=== PATIENT | female | born 1960 | race Caucasian/White ===

== ENCOUNTER 2019-09-26 14:02 | Emergency (ER) | payer SELFPAY ==
--- NOTE | 2019-09-26 14:18 | CT_ITS ---
WS: [id number] CT HEAD NONCONTRAST HISTORY: MARSH/AMS TECHNIQUE: Contiguous axial imaging performed through the brain in 2.5 mm imaging. Bone and soft tiss ue windows. Sagittal and coronal reformats reviewed. All CT scans at [facility] use at ast one of these dose optimization techniques: automated exposure control; mA and/or kV adjustment pe r patient size (includes targeted exams where dose is matched to clinical indication); or iterative r econstruction. DLP: 837.88 mGy.cm COMPARISON: 10/26/2017 No acute intracranial hemorrhage, midline shift or mass effect. No atrophy or prior infarcts or herniation. Ventricles: Normal size with no hydrocephalus. No inferior displacement of cerebellar tonsils. Paranasal sinuses: As visualized are clear. Mastoid air cells: Well pneumatized. Calvarium and scalp: Skull is intact with no soft tissue edema or swelling. CT/CT head wo con* [id number] IMPRESSION: Negative CT head. No interval change since 10/26/2017.
--- NOTE | 2019-09-26 14:18 | XR_ITS ---
WS: [id number] PORTABLE CHEST HISTORY: cough COMPARISON: None available. Increased soft tissue fullness at the RIGHT hilum. LEFT lung is clear. No pleural effusion or pneumot horax. Cardiac size: Normal. Mediastinum/Aorta: Mild atherosclerosis aorta. Prior RIGHT rotator cuff repair. XR/XR chest 1V portable [id number] IMPRESSION: 1. Increased soft tissue at the RIGHT hilum. Recommend follow-up chest CT with IV contrast. Adenopathy, atelectasis, pneumonia and neoplasm within the differ ential.
--- NOTE | 2019-09-26 14:31 | ED_ITS ---
HPI - General Adult General: Chief complaint: Headache Stated complaint: weakness/fever/headache Time Seen by Provider: 09/26/19 14:05 History of Present Illness: HPI narrative: Marry is a 59-year-old female who comes in complaining of fever, generalized malaise and headache. Her fevers got as high as 101.6 at home. Her symptoms started 4 days ago. Symptoms have been intermittent. She denies any neck pain or stiffness, nausea or vomiting, skin rash, cough, dysuria or shortness of breath. She denies abdominal pain, urinary frequency or urgency. Associated symptoms: Reports headache(s) and malaise; Deny chest pain, confusion, diaphoresis, dyspnea, nausea, rash, palpitations, syncope or vomiting Review of Systems General: Reports: other (negative unless marked) Const: Reports: fever, chills, body aches, fatigue and malaise; Denies: diaphoresis Eyes: Denies: change in vision or blurry vision ENMT: Denies: throat pain, painful swallowing, hoarseness, ear pain, ear discharge, Change in hearing or nasal discharge Card: Denies: chest pain, palpitations, irregular heart rhythm, syncope, pre- syncope, shortness of breath on exertion or shortness of breath when lying down Resp: Denies: shortness of breath, productive cough, non-productive cough, wheezing, coughing up blood or chest congestion GI: Denies: abdominal pain, nausea, vomiting, vomiting blood, coffee grounds in vomit, diarrhea, constipation, cramping, blood in stool or black tarry stool : Denies: flank pain, painful urination, urinary frequency, urinary urgency, decreased urine ouput, urinary incontinence or blood in urine Musc: Denies: neck pain, back pain, extremity pain, extremity swelling, joint pain, joint swelling, joint warmth or joint stiffness Skin/Breast: Denies: rash, skin tenderness or yellow skin Neuro: Reports: headache; Denies: numbness in extremities, weakness in extremities, changes in sensation, lack of coordination, difficulty walking, dizziness, vertigo or confusion Endo: Denies: excessive thirst, tired all the time, cold intolerance, excessive sweating, flushing or hot flashes Efrem/Lymph: Denies: easy bruising, easy bleeding, petechiae or enlarged lymph nodes All/Imm: Denies: hives, throat swelling, tongue swelling, facial swelling or acute wheezing PFSH ED PFSH: Medical History Depression Surgical History Hx of inguinal hernia surgery Previous section Social History Smoking and tobacco status: never smoked Physical Exam Const: COMMON NORMALS: no apparent distress, oriented x3, no limitations, healthy appearing and well nourished EXAM LIMITATIONS: no altered mental status GENERAL APPEARANCE: cooperative, well kempt and well developed ORIENTATION/CONSCIOUSNESS: Yes awake HENMT: COMMON NORMALS: normocephalic, head/scalp atraumatic, hearing grossly normal bilaterally, external ears normal, EAC's normal, external nose normal and moist oral mucous membranes HEAD & SCALP: normal to inspection, normocephalic and atraumatic FACE & SINUS: normal facial exam and face symmetric NOSE: external nose normal and nares normal EXTERNAL EAR: Yes external ears normal EXTERNAL AUDITORY CANAL: EAC's normal MOUTH: oral and palatal mucosa normal and tongue normal Eye: COMMON NORMALS: PERRL, EOMs intact bilaterally, conjunctivae normal and no scleral icterus GENERAL EYE: normal appearance of both eyes and normal light reflex CONJUNCTIVA: Yes conjunctivae normal SCLERA: sclerae normal CORNEA: Yes corneas normal PUPIL: Yes PERRL DIRECT OPHTHALMOSCOPY: Yes normal light reflex Neck/C-Spine: COMMON NORMALS: full ROM, no lymphadenopathy, supple, no meningeal signs and no JVD GENERAL: Yes normal visual inspection and Yes trachea midline CERVICAL SPINE: Yes cervical ROM normal Chest: COMMONS NORMALS: inspection of chest normal and palpation of chest normal Resp: COMMON NORMALS: normal respiratory effort, no retractions, no use of accessory muscles and clear to auscultation bilaterally EFFORT & INSPECTION: Yes able to speak in complete sentences AUSCULTATION: clear to auscultation bilaterally Cardio: COMMON NORMALS: no JVD, regular rate, regular rhythm, S1 normal heart sound, S2 normal heart sound, no gallops, no clicks, no murmurs and no rub JUGULAR VENOUS DISTENTION: no JVD RATE: regular rate RHYTHM: regular rhythm HEART SOUNDS: S1 normal and S2 normal GI: COMMON NORMALS: soft to palpation, non-tender, no hepatosplenomegaly and no masses INSPECTION: Yes normal to inspection PALPATION: Yes soft and Yes no hepatosplenomegaly : COMMON NORMALS: Yes no CVA tenderness BLADDER/KIDNEY EXAM: Yes no CVA tenderness Back/Pelvis: COMMON NORMALS: no CVA tenderness, thoracic and lumbar spine normal to inspection, no thoracic nor lumbar tenderness and thoraco-lumbar ROM normal Extremity: COMMON NORMALS: normal to inspection, full ROM, normal capillary refill, no joint enlargement, no clubbing, cyanosis or edema and no calf tenderness Neuro: COMMON NORMALS: oriented x3, CN's II-XII intact bilaterally, moves all extremities, no focal motor deficits and no sensory deficits noted MENINGEAL SIGNS: Yes no meningeal signs Psych: COMMON NORMALS: mental status grossly normal, thought process normal, cooperative, affect normal, speech normal and activity/motor behavior normal APPEARANCE: Yes well kempt SPEECH: Yes normal speech THOUGHT PROCESS: normal thought process Skin: COMMON NORMALS: no rashes or lesions noted, skin turgor normal, no jaundice, no petechiae and no mottling GENERAL SKIN EXAM: no rashes or lesions noted and turgor normal Procedures Lumbar Puncture Time Out Performed: Yes Patient Position: left lateral decubitus Skin Prep: Povidone-Iodine 1% Local Anesthetic: lidocaine 1% and with epi Amount of anesthesia used (mL): 3 Spinal Needle Gauge: 20G Interspace Used: L4-L5 Fluid Initially Obtained: clear Complications: none Course ED course: 1423 -risks and benefits reviewed with patient concerning need for lumbar puncture to rule out meningitis and she consents to this. Vital Signs: Vital signs: Vital Signs Temperature 98.6 F 09/26/19 14:34 Pulse Rate 77 09/26/19 17:00 Respiratory Rate 16 09/26/19 17:00 Blood Pressure 104/73 09/26/19 17:00 Pulse Oximetry 96 09/26/19 17:00 MDM - General Adult MDM Narrative: Medical decision making narrative: Marry is a 59-year-old female who comes in complaining of headache. Headache is been for the past 4 days but much worse today. She had a fever 1 day of this illness at 101.6. She is had a couple of tick bites but there is been no rash or other illness that she is aware of. Patient's work-up was negative for meningitis and did reveal a questionable right perihilar infiltrate. She also had mild transaminitis but she refused any imaging with ultrasound. Her hepatitis panel is negative. Patient does not want to have a CT scan today to look for anything further. I reviewed all this with Dr. Everett, on-call for Dr. Martinez and he agrees to let Dr. Martinez know that the patient will follow-up in the office to recheck a chest x- ray and liver enzymes. The patient was informed that this could be an occult malignancy and will need further evaluation and she understands. Lab Data: Attestation: I reviewed the patient's lab results. Labs: Lab Results 09/26/19 09/26/19 09/26/19 Range/Units 14:25 14:25 14:25 WBC 8.6 (4.0-10.0) 10^3/ uL RBC 4.07 L (4.1-5.3) 10^6/u L Hgb 12.9 (11.5-15.3) g/dL Hct 38.5 (37.0-47.0) % MCV 94.6 (81-99) fL MCH 31.7 (28.0-34.0) pg MCHC 33.5 (30.0-36.0) g/dL RDW 12.3 (12.1-15.1) % Plt Count 181 (130-400) 10^3/c mm MPV 10.1 (7.4-10.4) fL Neut % (Auto) 84.6 % Lymph % (Auto) 8.5 % Wharton % (Auto) 6.3 % Eos % (Auto) 0.0 % Baso % (Auto) 0.1 % Neut # (Auto) 7.3 (1.8-7.7) 10^3/u L Lymph # (Auto) 0.7 L (0.8-4.8) 10^3/u L Wharton # (Auto) 0.5 (0.2-0.9) 10^3/u L Eos # (Auto) 0.0 (0.0-0.8) 10^3/u L Baso # (Auto) 0.0 (0.0-0.1) 10^3/u L Nucleated RBC % (a uto) 0 % Nucleated RBCs # 0.0 /100WBC PT (10.5-13.3) SECO NDS INR (0.8-1.2) Sodium 134 L (136-145) mmol/L Potassium 3.9 (3.5-5.1) mmol/L Chloride 97 L (98-107) mmol/L Carbon Dioxide 24 (22-29) mmol/L Anion Gap 16.9 (5-19) BUN 11 (8-23) mg/dL Creatinine 0.5 (0.5-0.9) mg/dL GFR Calculation 125.4 (90-130) mL/min Glucose 124 H (65-115) mg/dL Calculated Osmolal ity 275 L (285-295) mOsm/k g Lactic Acid 0.9 (0.5-2.2) mmol/L Calcium 9.8 (8.5-10.5) mg/dL Magnesium 2.1 (1.7-2.3) mg/dL Total Bilirubin 0.4 (0.15-1.2) mg/dL AST 135 H (0-32) U/L ALT 185 H (0-33) U/L Alkaline Phosphata se 203 H (35-105) IU/L Total Protein 7.0 (6.6-8.7) g/dL Albumin 3.9 (3.5-5.2) g/dL Globulin 3.1 (1.3-4.6) g/dL Urine Color (Yellow) Urine Appearance (CLEAR) Urine pH (5-7) Ur Specific Gravit y (1.005-1.030) Urine Protein (Negative) Urine Glucose (UA) (Normal) Urine Ketones (Negative) Urine Blood (Negative) Urine Nitrate (Negative) Urine Bilirubin (NEGATIVE) Urine Urobilinogen (Negative) mg/dL Ur Leukocyte Leann ase (Negative) Urine RBC (0-2) /hpf Urine WBC (0-5) /hpf Ur Squamous Epith Cells (0-5) Urine Bacteria (NONE) CSF Appearance (CLEAR) CSF Color (COLORLESS) CSF WBC (0-5) /uL CSF RBC (0-0) 10^3/uL CSF Mononuclear # Auto (50-90) 10^3/uL CSF Mononuclear WB Cs % (50-90) % CSF Polynuclear WB Cs # (0-10) 10^3/uL CSF Polynuclear WB Cs % (0-10) % CSF Glucose (40-70) mg/dL CSF Total Protein (15-45) mg/dL Salicylates (3-10) mg/dL Acetaminophen (10-30) ug/mL Hepatitis A IgM Ab (Nonreactive) Hep Bs Antigen (Nonreactive) Hep B Core IgM Ab (Nonreactive) Hepatitis C Antibo dy (Nonreactive) Influenza Type A A g (Negative) Influenza Type B A g (Negative) 09/26/19 09/26/19 09/26/19 Range/Units 14:25 14:25 14:25 WBC (4.0-10.0) 10^3/ uL RBC (4.1-5.3) 10^6/u L Hgb (11.5-15.3) g/dL Hct (37.0-47.0) % MCV (81-99) fL MCH (28.0-34.0) pg MCHC (30.0-36.0) g/dL RDW (12.1-15.1) % Plt Count (130-400) 10^3/c mm MPV (7.4-10.4) fL Neut % (Auto) % Lymph % (Auto) % Wharton % (Auto) % Eos % (Auto) % Baso % (Auto) % Neut # (Auto) (1.8-7.7) 10^3/u L Lymph # (Auto) (0.8-4.8) 10^3/u L Wharton # (Auto) (0.2-0.9) 10^3/u L Eos # (Auto) (0.0-0.8) 10^3/u L Baso # (Auto) (0.0-0.1) 10^3/u L Nucleated RBC % (a uto) % Nucleated RBCs # /100WBC PT 13.20 (10.5-13.3) SECO NDS INR 0.97 (0.8-1.2) Sodium (136-145) mmol/L Potassium (3.5-5.1) mmol/L Chloride (98-107) mmol/L Carbon Dioxide (22-29) mmol/L Anion Gap (5-19) BUN (8-23) mg/dL Creatinine (0.5-0.9) mg/dL GFR Calculation (90-130) mL/min Glucose (65-115) mg/dL Calculated Osmolal ity (285-295) mOsm/k g Lactic Acid (0.5-2.2) mmol/L Calcium (8.5-10.5) mg/dL Magnesium (1.7-2.3) mg/dL Total Bilirubin (0.15-1.2) mg/dL AST (0-32) U/L ALT (0-33) U/L Alkaline Phosphata se (35-105) IU/L Total Protein (6.6-8.7) g/dL Albumin (3.5-5.2) g/dL Globulin (1.3-4.6) g/dL Urine Color (Yellow) Urine Appearance (CLEAR) Urine pH (5-7) Ur Specific Gravit y (1.005-1.030) Urine Protein (Negative) Urine Glucose (UA) (Normal) Urine Ketones (Negative) Urine Blood (Negative) Urine Nitrate (Negative) Urine Bilirubin (NEGATIVE) Urine Urobilinogen (Negative) mg/dL Ur Leukocyte Leann ase (Negative) Urine RBC (0-2) /hpf Urine WBC (0-5) /hpf Ur Squamous Epith Cells (0-5) Urine Bacteria (NONE) CSF Appearance (CLEAR) CSF Color (COLORLESS) CSF WBC (0-5) /uL CSF RBC (0-0) 10^3/uL CSF Mononuclear # Auto (50-90) 10^3/uL CSF Mononuclear WB Cs % (50-90) % CSF Polynuclear WB Cs # (0-10) 10^3/uL CSF Polynuclear WB Cs % (0-10) % CSF Glucose (40-70) mg/dL CSF Total Protein (15-45) mg/dL Salicylates < 0.3 L (3-10) mg/dL Acetaminophen < 5.0 L (10-30) ug/mL Hepatitis A IgM Ab Non-reactive (Nonreactive) Hep Bs Antigen Non-reactive (Nonreactive) Hep B Core IgM Ab Non-reactive (Nonreactive) Hepatitis C Antibo dy Non-reactive (Nonreactive) Influenza Type A A g (Negative) Influenza Type B A g (Negative) 09/26/19 09/26/19 09/26/19 Range/Units 15:05 15:05 15:11 WBC (4.0-10.0) 10^3/ uL RBC (4.1-5.3) 10^6/u L Hgb (11.5-15.3) g/dL Hct (37.0-47.0) % MCV (81-99) fL MCH (28.0-34.0) pg MCHC (30.0-36.0) g/dL RDW (12.1-15.1) % Plt Count (130-400) 10^3/c mm MPV (7.4-10.4) fL Neut % (Auto) % Lymph % (Auto) % Wharton % (Auto) % Eos % (Auto) % Baso % (Auto) % Neut # (Auto) (1.8-7.7) 10^3/u L Lymph # (Auto) (0.8-4.8) 10^3/u L Wharton # (Auto) (0.2-0.9) 10^3/u L Eos # (Auto) (0.0-0.8) 10^3/u L Baso # (Auto) (0.0-0.1) 10^3/u L Nucleated RBC % (a uto) % Nucleated RBCs # /100WBC PT (10.5-13.3) SECO NDS INR (0.8-1.2) Sodium (136-145) mmol/L Potassium (3.5-5.1) mmol/L Chloride (98-107) mmol/L Carbon Dioxide (22-29) mmol/L Anion Gap (5-19) BUN (8-23) mg/dL Creatinine (0.5-0.9) mg/dL GFR Calculation (90-130) mL/min Glucose (65-115) mg/dL Calculated Osmolal ity (285-295) mOsm/k g Lactic Acid (0.5-2.2) mmol/L Calcium (8.5-10.5) mg/dL Magnesium (1.7-2.3) mg/dL Total Bilirubin (0.15-1.2) mg/dL AST (0-32) U/L ALT (0-33) U/L Alkaline Phosphata se (35-105) IU/L Total Protein (6.6-8.7) g/dL Albumin (3.5-5.2) g/dL Globulin (1.3-4.6) g/dL Urine Color (Yellow) Urine Appearance (CLEAR) Urine pH (5-7) Ur Specific Gravit y (1.005-1.030) Urine Protein (Negative) Urine Glucose (UA) (Normal) Urine Ketones (Negative) Urine Blood (Negative) Urine Nitrate (Negative) Urine Bilirubin (NEGATIVE) Urine Urobilinogen (Negative) mg/dL Ur Leukocyte Leann ase (Negative) Urine RBC (0-2) /hpf Urine WBC (0-5) /hpf Ur Squamous Epith Cells (0-5) Urine Bacteria (NONE) CSF Appearance Clear Clear (CLEAR) CSF Color Colorless Colorless (COLORLESS) CSF WBC 1 1 (0-5) /uL CSF RBC 0 0 (0-0) 10^3/uL CSF Mononuclear # Auto 0.001 L 0.001 L (50-90) 10^3/uL CSF Mononuclear WB Cs % 100 H 100 H (50-90) % CSF Polynuclear WB Cs # 0.000 0.000 (0-10) 10^3/uL CSF Polynuclear WB Cs % 0 0 (0-10) % CSF Glucose 70 (40-70) mg/dL CSF Total Protein 28 (15-45) mg/dL Salicylates (3-10) mg/dL Acetaminophen (10-30) ug/mL Hepatitis A IgM Ab (Nonreactive) Hep Bs Antigen (Nonreactive) Hep B Core IgM Ab (Nonreactive) Hepatitis C Antibo dy (Nonreactive) Influenza Type A A g Negative (Negative) Influenza Type B A g Negative (Negative) 09/26/19 Range/Units 16:50 WBC (4.0-10.0) 10^3/ uL RBC (4.1-5.3) 10^6/u L Hgb (11.5-15.3) g/dL Hct (37.0-47.0) % MCV (81-99) fL MCH (28.0-34.0) pg MCHC (30.0-36.0) g/dL RDW (12.1-15.1) % Plt Count (130-400) 10^3/c mm MPV (7.4-10.4) fL Neut % (Auto) % Lymph % (Auto) % Wharton % (Auto) % Eos % (Auto) % Baso % (Auto) % Neut # (Auto) (1.8-7.7) 10^3/u L Lymph # (Auto) (0.8-4.8) 10^3/u L Wharton # (Auto) (0.2-0.9) 10^3/u L Eos # (Auto) (0.0-0.8) 10^3/u L Baso # (Auto) (0.0-0.1) 10^3/u L Nucleated RBC % (a uto) % Nucleated RBCs # /100WBC PT (10.5-13.3) SECO NDS INR (0.8-1.2) Sodium (136-145) mmol/L Potassium (3.5-5.1) mmol/L Chloride (98-107) mmol/L Carbon Dioxide (22-29) mmol/L Anion Gap (5-19) BUN (8-23) mg/dL Creatinine (0.5-0.9) mg/dL GFR Calculation (90-130) mL/min Glucose (65-115) mg/dL Calculated Osmolal ity (285-295) mOsm/k g Lactic Acid (0.5-2.2) mmol/L Calcium (8.5-10.5) mg/dL Magnesium (1.7-2.3) mg/dL Total Bilirubin (0.15-1.2) mg/dL AST (0-32) U/L ALT (0-33) U/L Alkaline Phosphata se (35-105) IU/L Total Protein (6.6-8.7) g/dL Albumin (3.5-5.2) g/dL Globulin (1.3-4.6) g/dL Urine Color Yellow (Yellow) Urine Appearance Clear (CLEAR) Urine pH 6 (5-7) Ur Specific Gravit y 1.010 (1.005-1.030) Urine Protein Neg (Negative) Urine Glucose (UA) Norm (Normal) Urine Ketones 1+ H (Negative) Urine Blood 2+ H (Negative) Urine Nitrate Negative (Negative) Urine Bilirubin Neg (NEGATIVE) Urine Urobilinogen Norm (Negative) mg/dL Ur Leukocyte Leann ase Negative (Negative) Urine RBC 50-80 H (0-2) /hpf Urine WBC None (0-5) /hpf Ur Squamous Epith Cells 0-4 H (0-5) Urine Bacteria Trace (NONE) CSF Appearance (CLEAR) CSF Color (COLORLESS) CSF WBC (0-5) /uL CSF RBC (0-0) 10^3/uL CSF Mononuclear # Auto (50-90) 10^3/uL CSF Mononuclear WB Cs % (50-90) % CSF Polynuclear WB Cs # (0-10) 10^3/uL CSF Polynuclear WB Cs % (0-10) % CSF Glucose (40-70) mg/dL CSF Total Protein (15-45) mg/dL Salicylates (3-10) mg/dL Acetaminophen (10-30) ug/mL Hepatitis A IgM Ab (Nonreactive) Hep Bs Antigen (Nonreactive) Hep B Core IgM Ab (Nonreactive) Hepatitis C Antibo dy (Nonreactive) Influenza Type A A g (Negative) Influenza Type B A g (Negative) Imaging Data^: CT Head: Radiologist's impression: [place] [address] CT Scan Report Signed Patient: Marry Dawkins Unit #: [id number] : 1960 Age/Sex: 59 / F ADM Date: 09/26/19 Loc: ER Room/Bed: Attending Dr: Ordering Provider/Ordering MD: Terra Hernandez DO Date of Service: 09/26/19 Procedure(s): CT head wo con* [id number] Accession Number(s): [id number] Report Number: [id number] WS: [id number] CT HEAD NONCONTRAST HISTORY: MARSH/AMS TECHNIQUE: Contiguous axial imaging performed through the brain in 2.5 mm imaging. Bone and soft tissue windows. Sagittal and coronal reformats reviewed. All CT scans at [facility] use at least one of these dose optimization techniques: automated exposure control; mA and/or kV adjustment per patient size (includes targeted exams where dose is matched to clinical indication); or iterative reconstruction. DLP: 837.88 mGy.cm COMPARISON: 10/26/2017 No acute intracranial hemorrhage, midline shift or mass effect. No atrophy or prior infarcts or herniation. Ventricles: Normal size with no hydrocephalus. No inferior displacement of cerebellar tonsils. Paranasal sinuses: As visualized are clear. Mastoid air cells: Well pneumatized. Calvarium and scalp: Skull is intact with no soft tissue edema or swelling. CT/CT head wo con* [id number] IMPRESSION: Negative CT head. No interval change since 10/26/2017. Dictated By: Emma Sprague DO Signed By: Emma Sprague DO Signed Date/Time: 09/26/191440 DD/ 143 CXR: Radiologist's impression: [address] [address] XRay Report Signed Patient: Marry Dawkins Unit #: [id number] : 1960 Age/Sex: 59 / F ADM Date: 09/26/19 Loc: ER Room/Bed: Attending Dr: Ordering Provider/Ordering MD: Terra Hernandez DO Date of Service: 09/26/19 Procedure(s): XR chest 1V portable [id number] Accession Number(s): [id number] Report Number: [id number] WS: [id number] PORTABLE CHEST HISTORY: cough COMPARISON: None available. Increased soft tissue fullness at the RIGHT hilum. LEFT lung is clear. No pleural effusion or pneumothorax. Cardiac size: Normal. Mediastinum/Aorta: Mild atherosclerosis aorta. Prior RIGHT rotator cuff repair. XR/XR chest 1V portable [id number] IMPRESSION: 1. Increased soft tissue at the RIGHT hilum. Recommend follow-up chest CT with IV contrast. Adenopathy, atelectasis, pneumonia and neoplasm within the differential. Dictated By: Emma Sprague DO Signed By: Emma Sprague DO Signed Date/Time: 09/26/191444 DD/ 43 Discharge Plan Discharge Patient Disposition: Home, Self-Care Clinical Impression: Elevated liver enzymes Headache Qualifiers: Headache type: unspecified Headache chronicity pattern: acute headache Intractability: not intractable Qualified Code(s): R51 - Headache Pneumonia Qualifiers: Pneumonia type: due to unspecified organism Laterality: right Lung location: middle lobe of lung Qualified Code(s): J18.9 - Pneumonia, unspecified organism Condition: Stable Prescriptions: New doxycycline hyclate 100 mg capsule 100 mg PO BID 10 Days Qty: 20 RF: 0 cefdinir 300 mg capsule 300 mg PO Q12H 10 Days Qty: 20 RF: 0 No Action venlafaxine 150 mg capsule,extended release 24hr 150 mg PO DAILY RF: 0 tramadol 50 mg tablet 50 mg PO BID PRN (Reason: Pain) RF: 0 Discharge Orders: Discharge Order (Routine); Ordered 09/26/19 Ordered By: Terra Hernandez Referrals: Curtis Martinez MD [Primary Care Provider] - 1-3 days Discharge Diet: Advance as tolerated Discharge Activity: Increase activity as tolerated Patient Instructions: Bacterial Pneumonia (ED) Activity Restrictions/Additional Instructions: Please return to the ER immediately for any of the signs or symptoms listed on your discharge instruction sheets, worsening/changing of your symptoms, you are not getting better as quickly as expected, or for ANY other cause or concerns. Take your antibiotics to the completion. Be certain to follow-up with Dr. Martinez as you will need a repeat EKG and lab work to exclude a serious cause for your mass in your chest and your elevated liver enzymes. It is imperative to follow- up with him to rule out things such as cancer. Coding Level of Care Code ED Cash Register Repairer for Chg Fwd Exam Comprehensive
[2019-09-26 14:34] VITALS: BP 154/85; PULSE 85; RESP 20; TEMP 37; O2SAT 95; BMI 23.0
[2019-09-26 14:34] LABS: Basophils % 0.1 %; Hematocrit 38.5 % (37.0-47.0); Hemoglobin 12.9 g/dL (11.5-15.3); Lymphocytes # 0.7 10^3/uL (0.8-4.8); Lymphocytes % 8.5 %; Mean Corpuscular HGB Conc 33.5 g/dL (30.0-36.0); Mean Corpuscular Hemoglobin 31.7 pg (28.0-34.0); Mean Corpuscular Volume 94.6 fL (81-99); Mean Platelet Volume 10.1 fL (7.4-10.4); Monocytes # 0.5 10^3/uL (0.2-0.9); Monocytes % 6.3 %; Neutrophils # 7.3 10^3/uL (1.8-7.7); Neutrophils % 84.6 %; Nucleated Red Blood Cells % 0 %; Platelet Count 181 10^3/cmm (130-400); Red Blood Count 4.07 10^6/uL (4.1-5.3); Red Cell Distribution Width 12.3 % (12.1-15.1); White Blood Count 8.6 10^3/uL (4.0-10.0)
[2019-09-26 14:47] LABS: Lactic Sepsis W/Reflex 0.9 mmol/L (0.5-2.2)
[2019-09-26 14:51] LABS: Alanine Aminotransferase 185 U/L (0-33); Albumin Level 3.9 g/dL (3.5-5.2); Alkaline Phosphatase 203 IU/L (35-105); Anion Gap 16.9 (5-19); Aspartate Amino Transferase 135 U/L (0-32); Blood Urea Nitrogen 11 mg/dL (8-23); Calcium 9.8 mg/dL (8.5-10.5); Carbon Dioxide 24 mmol/L (22-29); Chloride 97 mmol/L (98-107); Globulin 3.1 g/dL (1.3-4.6); Glomerular Filtration Rate 125.4 mL/min (90-130); Glucose 124 mg/dL (65-115); Magnesium 2.1 mg/dL (1.7-2.3); Osmolality Calculated 275 mOsm/kg (285-295); Potassium 3.9 mmol/L (3.5-5.1); Sodium 134 mmol/L (136-145); Total Bilirubin 0.4 mg/dL (0.15-1.2)
[2019-09-26] MEDS: sodium chloride 0.9% 1,000 ML 999 ML IV (14:51)
[2019-09-26 14:56] VITALS: RESP 18
[2019-09-26] MEDS: morphine 4 mg/mL SDV 1 mL IVP (14:56)
[2019-09-26] MEDS: ondansetron 2 mg/ML SDV 2 mL 4 MG IVP ×2 (14:57→18:40)
[2019-09-26 16:03] LABS: CSF Mononuclear # 0.001 10^3/uL (50-90); Mononuclear WBC CSF % 100 % (50-90); Polynuclear WBC CSF % 0 % (0-10); Red Blood Cell CSF 0 10^3/uL (0-0); White Blood Cell CSF 1 /uL (0-5)
[2019-09-26 16:06] LABS: CSF Mononuclear # 0.001 10^3/uL (50-90); Mononuclear WBC CSF % 100 % (50-90); Polynuclear WBC CSF % 0 % (0-10); Red Blood Cell CSF 0 10^3/uL (0-0); White Blood Cell CSF 1 /uL (0-5)
[2019-09-26 16:09] LABS: Glucose CSF 70 mg/dL (40-70); Total Protein CSF 28 mg/dL (15-45)
[2019-09-26 16:13] LABS: Appearance CSF CLEAR (CLEAR); Color CSF COLORLESS (COLORLESS)
[2019-09-26 16:14] LABS: Appearance CSF CLEAR (CLEAR); Color CSF COLORLESS (COLORLESS)
[2019-09-26 16:20] LABS: Hepatitis A Antibody IgM. Non-Reactive (Nonreactive); Hepatitis B Core IgM Non-Reactive (Nonreactive); Hepatitis B Surface Antigen. Non-Reactive (Nonreactive); Hepatitis C Virus Antibody Non-Reactive (Nonreactive)
[2019-09-26 17:00] VITALS: BP 104/73; PULSE 77; RESP 16; O2SAT 96
[2019-09-26 17:10] LABS: INR 0.97 (0.8-1.2)
[2019-09-26 17:22] LABS: Acetaminophen < 5.0 ug/mL (10-30); Salicylate < 0.3 mg/dL (3-10)
[2019-09-26 17:32] LABS: Bilirubin Urine Neg (NEGATIVE); Blood Urine 2+ (Negative); Glucose Urine UA Norm (Normal); Ketones Urine 1+ (Negative); Leukocyte Esterase Urine Negative (Negative); Nitrate Urine Negative (Negative); Protein Urine Neg (Negative); Urine Appearance Clear (CLEAR); Urine Color Yellow (Yellow); Urobilinogen Urine Norm (Negative); pH Urine 6 (5-7)
[2019-09-26 17:37] LABS: Add Urine Culture? Yes; Bacteria Urine TRACE; RBC Urine 50-80 /hpf (0-2); Squamous Epithelial Cell Urine 0-4 (0-5)
[2019-09-26 17:38] LABS: Influenza A by IFA Negative (Negative); Influenza B by IFA Negative (Negative)
[2019-09-26 19:00] VITALS: BP 116/66; PULSE 67; RESP 16; O2SAT 96
[2019-09-26] MEDS: cefTRIAXone 1,000 MG in sodium chloride 0.9% (plus) 50 ML 100 MG IV (19:44)
[2019-09-26] MEDS: doxycycline 100 mg Tablet 200 MG PO (19:45)
[2019-09-26 20:10] VITALS: BP 109/74; PULSE 68; PULSE 69; RESP 18; O2SAT 97
== END 2019-09-26 20:22 | disposition home or self-care (01) ==
PROVIDERS: Emergency Provider Emergency Medicine; Family Provider Family Medicine; PCP Family Medicine
DX: J18.9 Pneumonia, unspecified organism (principal); R51 Headache; R94.5 Abnormal results of liver function studies; F32.9 Major depressive disorder, single episode, unspecified
CPT/HCPCS: 12345; 36415; 62270; 70450; 71045; 80053; 80074; 80307; 80500; 81001; 82945; 83605; 83735; 84157; 85025; 85610; 87040; 87070; 87075; 87086; 87205; 87804; 89050; 96365; 96366; 96367; 96374; 96375; 96376; 99284; J0131; J0696; J2270; J2405; J7030

== ENCOUNTER 2020-12-21 10:52 | Emergency (ER) | payer OTHER, SELFPAY ==
[2020-12-21 10:58] VITALS: BP 105/67; PULSE 95; RESP 22; TEMP 38.1; O2SAT 90; BMI 22.4
--- NOTE | 2020-12-21 11:20 | XRR_ITS ---
PROCEDURE INFORMATION: Exam: XR Chest Exam date and time: 12/21/2020 11:20 AM Age: 60 years old Clinical indication: Fever and shortness of breath; Additional info: SOB, fever TECHNIQUE: Imaging protocol: XR of the chest. Views: 1 view. COMPARISON: CR XR chest 2V* [id number] 09/28/2019 10:31 AM FINDINGS: Lungs: Hazy linear infiltrate in the right lower lung in a similar distribution to previous examination. Pleural spaces: Unremarkable. No pleural effusion. No pneumothorax. Heart/Mediastinum: Unremarkable. No cardiomegaly. Bones/joints: Rotator cuff suture anchor noted in the right humeral head. XR/XR chest 1V portable [id number] IMPRESSION: Hazy linear infiltrate in the right lower lung in a similar distribution to previous examination. This could represent asymmetric scarring but given clinical history pneumonia is an additional consideration. Given persistent findings in this region a dedicated nonemergent chest CT may be of benefit for further characterization.
--- NOTE | 2020-12-21 11:37 | W.ED.SOB ---
HPI - SOB/Dyspnea General: Chief Complaint: Shortness of Breath/Dyspnea Stated Complaint: SOB,BODY ACHES FEVER Time Seen by Provider: 12/21/20 11:06 Source: patient Mode of arrival: ambulatory Limitations: no limitations History of Present Illness: HPI Narrative: Patient is a 60-year-old female who presents to the emergency department with complaints of cough, productive of greenish sputum, fever, shortness of breath. Highest temperature she got at home was 102 ?F. She also complains of generalized body aches. She denies any sick contacts. She has been using [id number] cough and cold medicine but no improvement. She is therefore here to be evaluated. MD elicited complaint: shortness of breath and cough Pertinent past history: pneumonia Onset (ago): day(s) (6) Timing: constant Severity: moderate Exacerbating factors: nothing Relieving factors: nothing Associated symptoms: Reports cough, fever(s) and myalgias; Deny abdominal pain, chest congestion, chest pain, diaphoresis, dizziness, extremity pain, hemoptysis, lightheadedness, nausea, orthopnea, palpitations, paresthesias, polydipsia, polyuria, rash, sense of impending doom, syncope or vomiting Treatment prior to arrival: none Review of Systems General: Reports: 10 or more systems reviewed and unremarkable except in HPI and below Const: Reports: fever(s); Denies: diaphoresis Card: Denies: chest pain, palpitations, lightheadedness, syncope or orthopnea Resp: Denies: hemoptysis or chest congestion GI: Denies: abdominal pain, nausea or vomiting Musc: Denies: extremity pain Neuro: Denies: dizziness Endo: Denies: polyuria or polydipsia PFS ED PFSH: Medical History (Reviewed 12/22/20 @ 23:18 by Dianne Orellana MD, [facility] [place]) Depression Surgical History (Reviewed 12/22/20 @ 23:18 by Dianne Orellana MD, [facility] [place]) Hx of inguinal hernia surgery Previous section Social History (Reviewed 12/22/20 @ 23:18 by Dianne Orellana MD, [facility] [place]) Smoking and tobacco status: never smoked Physical Exam Const: COMMON NORMALS: no acute distress, average body habitus, patient oriented x3, no limitations, healthy appearing, alert and well nourished HENMT: COMMON NORMALS: normocephalic, atraumatic and moist oral mucous membranes HEAD & SCALP: normocephalic and atraumatic Neck/C-Spine: COMMON NORMALS: no meningeal signs and no JVD Resp: COMMON NORMALS: normal respiratory effort, No retractions, No use of accessory muscles and percussion normal AUSCULTATION: rales on the right in the mid lung sandoval and in the lower lung sandoval PERCUSSION: percussion normal Cardio: COMMON NORMALS: no JVD, regular rate, regular rhythm, S1 normal heart sound present, S2 normal heart sound present, No gallops present (Cardio), No clicks present (Cardio), No murmurs present (Cardio), No rub (Cardio) and Peripheral pulses 2+ throughout RATE: regular rate RHYTHM: regular rhythm HEART SOUNDS: S1 normal heart sound present and S2 normal heart sound present PERIPHERAL PULSES: Peripheral pulses 2+ throughout GI: COMMON NORMALS: Normal to inspection, nondistended, normoactive bowel sounds present, Soft to palpation, non-tender, No hepatosplenomegaly present, no masses and no bruits PALPATION: Yes Soft to palpation and Yes No hepatosplenomegaly present Extremity: COMMON NORMALS: normal to inspection, full ROM, capillary refill normal, no calf tenderness and no pedal edema Neuro: COMMON NORMALS: patient oriented x3 SENSORIUM/ORIENTATION: Yes alert MENINGEAL SIGNS: Yes no meningeal signs Skin: COMMON NORMALS: no rashes or lesions noted, no wounds, turgor normal, no jaundice, no petechiae and no mottling GENERAL SKIN EXAM: no rashes or lesions noted and turgor normal Course Reevaluation(s): Reevaluation #1: This 60 year old female presented to the ED with complaints of a fever and respiratory symptoms. In the ED she tested positive for COVID-19 and CXR shows diffuse infiltrates consistent with COVID pneumonia. She is not requiring oxygen and she is discharged home with no new orders. Time: 14:46 Vital Signs: Vital signs: Vital Signs Temperature 100.6 F H 12/21/20 10:58 Pulse Rate 85 12/21/20 15:31 Respiratory Rate 22 H 12/21/20 10:58 Blood Pressure 130/69 12/21/20 15:31 Pulse Oximetry 97 12/21/20 15:31 MDM - SOB/Dyspnea MDM Narrative: Medical decision making narrative: 60 year old female with COVID pneumonia. She presents with fever and respiratory symptoms. She is not requiring oxygen and does not meet criteria for monoclonal antibody infusion. She is discharged home with no new orders but she is to monitor her oxygen saturations. She is sent home with a pulse oximeter. Medical Records: Attestation: I reviewed the patient's medical records. Lab Data: Attestation: I reviewed the patient's lab results. Labs: Lab Results 12/21/20 12/21/20 12/21/20 Range/Units 11:49 11:49 11:49 WBC 4.0 (4.0-10.0) 10^3/ uL RBC 4.30 (4.1-5.3) 10^6/u L Hgb 13.3 (11.5-15.3) g/dL Hct 40.1 (37.0-47.0) % MCV 93.3 (81-99) fL MCH 30.9 (28.0-34.0) pg MCHC 33.2 (30.0-36.0) g/dL RDW 12.0 L (12.1-15.1) % Plt Count 185 (130-400) 10^3/c mm MPV 9.8 (7.4-10.4) fL Neut % (Auto) 69.1 % Lymph % (Auto) 25.1 % Galax % (Auto) 5.3 % Eos % (Auto) 0.0 % Baso % (Auto) 0.0 % Neut # (Auto) 2.76 (1.8-7.7) 10^3/u L Lymph # (Auto) 1.0 (0.8-4.8) 10^3/u L Galax # (Auto) 0.2 (0.2-0.9) 10^3/u L Eos # (Auto) 0.0 (0.0-0.8) 10^3/u L Baso # (Auto) 0.0 (0.0-0.1) 10^3/u L Nucleated RBC % (a uto) 0 % Nucleated RBCs # 0.0 /100WBC Fibrinogen 502 H (174-498) mg/dL D-Dimer 1.06 H (0-0.59) ug/mIFE U Sodium 132 L (136-145) mmol/L Potassium 4.4 (3.5-5.1) mmol/L Chloride 95 L (98-107) mmol/L Carbon Dioxide 25 (22-29) mmol/L Anion Gap 16.4 (5-19) BUN 12 (8-23) mg/dL Creatinine 0.5 (0.5-0.9) mg/dL GFR Calculation 125.0 (90-130) mL/min Glucose 92 (65-115) mg/dL Calculated Osmolal ity 273 L (285-295) mOsm/k g Lactic Acid (0.5-2.2) mmol/L Calcium 8.9 (8.5-10.5) mg/dL Ferritin 862 H (15-150) ng/mL Total Bilirubin 0.3 (0.15-1.2) mg/dL AST 42 H (0-32) U/L ALT 30 (0-33) U/L Alkaline Phosphata se 114 H (35-105) IU/L Creatine Kinase 38 (26-192) U/L C-Reactive Protein 44.8 H (0.0-4.9) mg/L Total Protein 6.7 (6.6-8.7) g/dL Albumin 3.7 (3.5-5.2) g/dL Globulin 3.0 (1.3-4.6) g/dL Procalcitonin 0.03 (0-0.5) ng/mL Nasal/Oral COVID-1 9 PCR Influenza Type A A g (Negative) Influenza Type B A g (Negative) SARS-CoV-2 RNA (RT -PCR) (NOT DETECTED) SARS-CoV-2 Ag (Rap id) (Negative) 12/21/20 12/21/20 12/21/20 Range/Units 11:49 11:49 11:49 WBC (4.0-10.0) 10^3/ uL RBC (4.1-5.3) 10^6/u L Hgb (11.5-15.3) g/dL Hct (37.0-47.0) % MCV (81-99) fL MCH (28.0-34.0) pg MCHC (30.0-36.0) g/dL RDW (12.1-15.1) % Plt Count (130-400) 10^3/c mm MPV (7.4-10.4) fL Neut % (Auto) % Lymph % (Auto) % Galax % (Auto) % Eos % (Auto) % Baso % (Auto) % Neut # (Auto) (1.8-7.7) 10^3/u L Lymph # (Auto) (0.8-4.8) 10^3/u L Galax # (Auto) (0.2-0.9) 10^3/u L Eos # (Auto) (0.0-0.8) 10^3/u L Baso # (Auto) (0.0-0.1) 10^3/u L Nucleated RBC % (a uto) % Nucleated RBCs # /100WBC Fibrinogen (174-498) mg/dL D-Dimer (0-0.59) ug/mIFE U Sodium (136-145) mmol/L Potassium (3.5-5.1) mmol/L Chloride (98-107) mmol/L Carbon Dioxide (22-29) mmol/L Anion Gap (5-19) BUN (8-23) mg/dL Creatinine (0.5-0.9) mg/dL GFR Calculation (90-130) mL/min Glucose (65-115) mg/dL Calculated Osmolal ity (285-295) mOsm/k g Lactic Acid 0.9 (0.5-2.2) mmol/L Calcium (8.5-10.5) mg/dL Ferritin (15-150) ng/mL Total Bilirubin (0.15-1.2) mg/dL AST (0-32) U/L ALT (0-33) U/L Alkaline Phosphata se (35-105) IU/L Creatine Kinase (26-192) U/L C-Reactive Protein (0.0-4.9) mg/L Total Protein (6.6-8.7) g/dL Albumin (3.5-5.2) g/dL Globulin (1.3-4.6) g/dL Procalcitonin (0-0.5) ng/mL Nasal/Oral COVID-1 9 PCR Cancelled Influenza Type A A g Negative (Negative) Influenza Type B A g Negative (Negative) SARS-CoV-2 RNA (RT -PCR) (NOT DETECTED) SARS-CoV-2 Ag (Rap id) (Negative) 12/21/20 12/21/20 Range/Units 11:49 11:49 WBC (4.0-10.0) 10^3/ uL RBC (4.1-5.3) 10^6/u L Hgb (11.5-15.3) g/dL Hct (37.0-47.0) % MCV (81-99) fL MCH (28.0-34.0) pg MCHC (30.0-36.0) g/dL RDW (12.1-15.1) % Plt Count (130-400) 10^3/c mm MPV (7.4-10.4) fL Neut % (Auto) % Lymph % (Auto) % Galax % (Auto) % Eos % (Auto) % Baso % (Auto) % Neut # (Auto) (1.8-7.7) 10^3/u L Lymph # (Auto) (0.8-4.8) 10^3/u L Galax # (Auto) (0.2-0.9) 10^3/u L Eos # (Auto) (0.0-0.8) 10^3/u L Baso # (Auto) (0.0-0.1) 10^3/u L Nucleated RBC % (a uto) % Nucleated RBCs # /100WBC Fibrinogen (174-498) mg/dL D-Dimer (0-0.59) ug/mIFE U Sodium (136-145) mmol/L Potassium (3.5-5.1) mmol/L Chloride (98-107) mmol/L Carbon Dioxide (22-29) mmol/L Anion Gap (5-19) BUN (8-23) mg/dL Creatinine (0.5-0.9) mg/dL GFR Calculation (90-130) mL/min Glucose (65-115) mg/dL Calculated Osmolal ity (285-295) mOsm/k g Lactic Acid (0.5-2.2) mmol/L Calcium (8.5-10.5) mg/dL Ferritin (15-150) ng/mL Total Bilirubin (0.15-1.2) mg/dL AST (0-32) U/L ALT (0-33) U/L Alkaline Phosphata se (35-105) IU/L Creatine Kinase (26-192) U/L C-Reactive Protein (0.0-4.9) mg/L Total Protein (6.6-8.7) g/dL Albumin (3.5-5.2) g/dL Globulin (1.3-4.6) g/dL Procalcitonin (0-0.5) ng/mL Nasal/Oral COVID-1 9 PCR Influenza Type A A g (Negative) Influenza Type B A g (Negative) SARS-CoV-2 RNA (RT -PCR) Detected A (NOT DETECTED) SARS-CoV-2 Ag (Rap id) Positive H (Negative) Imaging Data^: CTA Chest: Attestation: I personally reviewed and interpreted this imaging study as follows: Radiologist's impression: [address] [id number] Scan ReportSigned Patient: Marry Dawkins #: [id number]: [id number]#:[id number]/Sex: 60 / FADM Date: 12/21/20Loc: ERRoom/Bed:Attending Dr: Ordering Provider/Ordering MD: Dianne Orellana MD, [facility] [place] Date of Service: 12/21/20 Procedure(s): CT angio chest PE protcl [id number] Accession Number(s): [id number] Report Number: [id number] PROCEDURE INFORMATION: Exam: CTA Chest With Contrast Exam date and time: 12/21/2020 12:58 PM Age: 60 years old Clinical indication: Shortness of breath; Additional info: SOB, covivd + TECHNIQUE: Imaging protocol: Computed tomographic angiography of the chest with contrast. 3D rendering (Not supervised by radiologist): MIP and/or 3D reconstructed images were created by the technologist. Radiation optimization: All CT scans at this facility use at least one of these dose optimization techniques: automated exposure control; mA and/or kV adjustment per patient size (includes targeted exams where dose is matched to clinical indication); or iterative reconstruction. Contrast material: OMNIPAQUE 350; Contrast volume: 66 ml; Contrast route: INTRAVENOUS (IV); COMPARISON: CR (CHEST, ) 12/21/2020 11:23 AM RADIATION DOSE METRICS: Total DLP (mGy-cm): 468.7 FINDINGS: Pulmonary arteries: Normal. No pulmonary emboli. Aorta: Unremarkable. No aortic aneurysm. No aortic dissection. Lungs: Peripheral ground-glass opacities throughout the lungs consistent with known COVID infection. Pleural spaces: Unremarkable. No pneumothorax. No pleural effusion. Heart: Unremarkable. No cardiomegaly. No pericardial effusion. Lymph nodes: Unremarkable. No enlarged lymph nodes. Bones/joints: No acute fracture. Suture biceps anchor from prior rotator cuff repair in the right humeral head. Soft tissues: Unremarkable. CT/CT angio chest PE protcl [id number] IMPRESSION: 1. Negative for pulmonary embolism. 2. Peripheral ground-glass opacities throughout both lungs consistent with COVID-19 infection. Radiation Dose CTDIVOL = (mGy): DLP = 468.7 (mGy-cm) Dictated By:Sheldon Arnold DOSigned By:Sheldon Arnold DOSigned Date/Time:12/21/201428DD/ 26 CXR: Attestation: I personally reviewed and interpreted this imaging study as follows: Radiologist's impression: [address] [id number] ReportSigned Patient: Marry Dakwins #: [id number]: [id number]#:[id number]/Sex: 60 / FADM Date: 12/21/20Loc: ERRoom/Bed:Attending Dr: Ordering Provider/Ordering MD: Dianne Orellana MD, [facility] [place] Date of Service: 12/21/20 Procedure(s): XR chest 1V portable [id number] Accession Number(s): [id number] Report Number: [id number] PROCEDURE INFORMATION: Exam: XR Chest Exam date and time: 12/21/2020 11:20 AM Age: 60 years old Clinical indication: Fever and shortness of breath; Additional info: SOB, fever TECHNIQUE: Imaging protocol: XR of the chest. Views: 1 view. COMPARISON: CR XR chest 2V* [id number] 09/28/2019 10:31 AM FINDINGS: Lungs: Hazy linear infiltrate in the right lower lung in a similar distribution to previous examination. Pleural spaces: Unremarkable. No pleural effusion. No pneumothorax. Heart/Mediastinum: Unremarkable. No cardiomegaly. Bones/joints: Rotator cuff suture anchor noted in the right humeral head. XR/XR chest 1V portable [id number] IMPRESSION: Hazy linear infiltrate in the right lower lung in a similar distribution to previous examination. This could represent asymmetric scarring but given clinical history pneumonia is an additional consideration. Given persistent findings in this region a dedicated nonemergent chest CT may be of benefit for further characterization. Dictated By:Sheldon Arnold DOSigned By:Sheldon Arnold DOSigned Date/Time:12/21/20 1329DD/ 132 Discharge Plan Discharge Patient Disposition: Home Clinical Impression: Pneumonia due to 2019 novel coronavirus Condition: Stable Prescriptions: New albuterol sulfate 90 mcg/actuation HFA aerosol inhaler 4 inh inhalation Q4H PRN (Reason: shortness of breath or wheezing) Qty: 8.5 RF: 0 Continued venlafaxine 150 mg capsule,extended release 24hr 150 mg PO DAILY@07 RF: 0 tramadol 50 mg tablet 50 mg PO BID PRN (Reason: Pain) RF: 0 acetaminophen [Tylenol Extra Strength] 500 mg Tablet 500 mg PO PRN PRN (Reason: pain/fever) RF: 0 ibuprofen [Advil] 200 mg Tablet 400 mg PO PRN RF: 0 PNV cmb#95-ferrous fumarate-FA [ Multivitamins] 28 mg iron- 800 mcg Tablet 1 tab PO DAILY RF: 0 [place] Tea See Rx Instructions .ROUTE .COMPLEX RF: 0 zinc 1 cap PO DAILY RF: 0 No Action dexamethasone 6 mg tablet 6 mg PO DAILY Qty: 5 RF: 0 Discharge Orders: Discharge ED (Routine); Ordered 12/21/20 Ordered By: Dianne Orellana Referrals: Curtis Martinez MD [Primary Care Provider] - 1-3 days Discharge Diet: Usual diet Discharge Activity: Increase activity as tolerated Patient Instructions: Viral Pneumonia (ED), Viral Syndrome (ED) Activity Restrictions/Additional Instructions: Return for any new or worsening symptoms. Follow-up with your primary care provider within 3 days via telemedicine. Check your oxygen saturation levels if it falls below 90% and stays below 90% consistently then you need to return to the emergency department to be evaluated. He needs to quarantine for at least 10 days after symptoms started and must be fever free for at least 24 hours. Coding Level of Care Code ED [employer] for Flavio Calderon Exam Comprehensive
[2020-12-21 11:57] LABS: Hematocrit 40.1 % (37.0-47.0); Hemoglobin 13.3 g/dL (11.5-15.3); Lymphocytes % 25.1 %; Mean Corpuscular HGB Conc 33.2 g/dL (30.0-36.0); Mean Corpuscular Hemoglobin 30.9 pg (28.0-34.0); Mean Corpuscular Volume 93.3 fL (81-99); Mean Platelet Volume 9.8 fL (7.4-10.4); Monocytes # 0.2 10^3/uL (0.2-0.9); Monocytes % 5.3 %; Neutrophils # 2.76 10^3/uL (1.8-7.7); Neutrophils % 69.1 %; Nucleated Red Blood Cells % 0 %; Platelet Count 185 10^3/cmm (130-400)
[2020-12-21 12:16] LABS: Fibrinogen 502 mg/dL (174-498)
[2020-12-21 12:18] LABS: D Dimer 1.06 ug/mIFEU (0-0.59)
[2020-12-21 12:20] LABS: Influenza A by IFA Negative (Negative); Influenza B by IFA Negative (Negative); SARS Covid-2 Antigen Positive (Negative)
[2020-12-21 12:22] LABS: Lactic Sepsis W/Reflex 0.9 mmol/L (0.5-2.2)
[2020-12-21 12:29] LABS: Slide Review Slide Review Perform
[2020-12-21 12:33] LABS: Procalcitonin 0.03 ng/mL (0-0.5)
[2020-12-21 12:46] LABS: Alanine Aminotransferase 30 U/L (0-33); Albumin Level 3.7 g/dL (3.5-5.2); Alkaline Phosphatase 114 IU/L (35-105); Anion Gap 16.4 (5-19); Aspartate Amino Transferase 42 U/L (0-32); Blood Urea Nitrogen 12 mg/dL (8-23); C Reactive Protein 44.8 mg/L (0.0-4.9); Calcium 8.9 mg/dL (8.5-10.5); Carbon Dioxide 25 mmol/L (22-29); Chloride 95 mmol/L (98-107); Creatine Phosphokinase 38 U/L (26-192); Ferritin 862 ng/mL (15-150); Glucose 92 mg/dL (65-115); Osmolality Calculated 273 mOsm/kg (285-295); Potassium 4.4 mmol/L (3.5-5.1); Sodium 132 mmol/L (136-145); Total Bilirubin 0.3 mg/dL (0.15-1.2); Total Protein 6.7 g/dL (6.6-8.7)
--- NOTE | 2020-12-21 12:58 | CTR_ITS ---
PROCEDURE INFORMATION: Exam: CTA Chest With Contrast Exam date and time: 12/21/2020 12:58 PM Age: 60 years old Clinical indication: Shortness of breath; Additional info: SOB, covivd + TECHNIQUE: Imaging protocol: Computed tomographic angiography of the chest with contrast. 3D rendering (Not supervised by radiologist): MIP and/or 3D reconstructed images were created by the technologist. Radiation optimization: All CT scans at this facility use at least one of these dose optimization techniques: automated exposure control; mA and/or kV adjustment per patient size (includes targeted exams where dose is matched to clinical indication); or iterative reconstruction. Contrast material: OMNIPAQUE 350; Contrast volume: 66 ml; Contrast route: INTRAVENOUS (IV); COMPARISON: CR (CHEST, ) 12/21/2020 11:23 AM RADIATION DOSE METRICS: Total DLP (mGy-cm): 468.7 FINDINGS: Pulmonary arteries: Normal. No pulmonary emboli. Aorta: Unremarkable. No aortic aneurysm. No aortic dissection. Lungs: Peripheral ground-glass opacities throughout the lungs consistent with known COVID infection. Pleural spaces: Unremarkable. No pneumothorax. No pleural effusion. Heart: Unremarkable. No cardiomegaly. No pericardial effusion. Lymph nodes: Unremarkable. No enlarged lymph nodes. Bones/joints: No acute fracture. Suture biceps anchor from prior rotator cuff repair in the right humeral head. Soft tissues: Unremarkable. CT/CT angio chest PE protcl [id number] IMPRESSION: 1. Negative for pulmonary embolism. 2. Peripheral ground-glass opacities throughout both lungs consistent with COVID-19 infection. Radiation Dose CTDIVOL = (mGy): DLP = 468.7 (mGy-cm)
[2020-12-21] MEDS: iohexol 350 mg/mL 100 mL Btl IV (14:14)
[2020-12-21 14:35] VITALS: BP 131/68; PULSE 90; O2SAT 91
[2020-12-21 14:45] VITALS: BP 129/78; PULSE 93; O2SAT 95
[2020-12-21 15:31] VITALS: BP 130/69; PULSE 85; O2SAT 97
[2020-12-23 03:57] LABS: Quest SARS-CoV-2 RNA DETECTED (NOT DETECTED)
== END 2020-12-21 15:25 | disposition home or self-care (01) ==
PROVIDERS: Emergency Provider Family Medicine; PCP Family Medicine
DX: U07.1 COVID-19 (principal); J12.82 Pneumonia due to coronavirus disease 2019
CPT/HCPCS: 71045; 71275; 80053; 82550; 82728; 83605; 84145; 85025; 85378; 85384; 86140; 87426; 87635; 87804; 99284; Q9967

== ENCOUNTER 2020-12-22 14:09 | Emergency (ER) | payer SELFPAY ==
[2020-12-22 15:24] VITALS: BP 115/57; PULSE 95; RESP 18; TEMP 38.8; O2SAT 91; BMI 22.4
--- NOTE | 2020-12-22 15:55 | XRR_ITS ---
PROCEDURE INFORMATION: Exam: XR Chest Exam date and time: 12/22/2020 4:21 PM Age: 60 years old Clinical indication: Cough and shortness of breath; Patient HX: Cough, SOB, + covid TECHNIQUE: Imaging protocol: XR of the chest. Views: 1 view. COMPARISON: CR (CHEST, ) 12/21/2020 11:23 AM FINDINGS: Lungs: Scattered patchy poorly defined ground-glass foci in the peripheral lungs bilaterally are increased from comparison imaging. There is background emphysema. Pleural spaces: Unremarkable. No pleural effusion. No pneumothorax. Heart/Mediastinum: Unremarkable. No cardiomegaly. Bones/joints: Unremarkable. Right proximal humerus surgical anchor. XR/XR chest 1V portable [id number] IMPRESSION: Worsening patchy multifocal airspace disease in the lungs consistent with atypical pneumonia.
[2020-12-22 17:03] VITALS: BP 109/54; PULSE 85; O2SAT 94
[2020-12-22 17:04] LABS: Basophils % 0.2 %; Hematocrit 37.2 % (37.0-47.0); Hemoglobin 12.9 g/dL (11.5-15.3); Lymphocytes # 0.9 10^3/uL (0.8-4.8); Lymphocytes % 17.3 %; Mean Corpuscular HGB Conc 34.7 g/dL (30.0-36.0); Mean Corpuscular Hemoglobin 31.8 pg (28.0-34.0); Mean Corpuscular Volume 91.6 fL (81-99); Mean Platelet Volume 9.7 fL (7.4-10.4); Monocytes # 0.3 10^3/uL (0.2-0.9); Monocytes % 5.2 %; Neutrophils # 3.86 10^3/uL (1.8-7.7); Neutrophils % 76.9 %; Nucleated Red Blood Cells % 0 %; Platelet Count 223 10^3/cmm (130-400); Red Blood Count 4.06 10^6/uL (4.1-5.3); Red Cell Distribution Width 11.9 % (12.1-15.1)
[2020-12-22 17:19] LABS: D Dimer 1.04 ug/mIFEU (0-0.59)
[2020-12-22 17:20] LABS: Alanine Aminotransferase 30 U/L (0-33); Albumin Level 3.6 g/dL (3.5-5.2); Alkaline Phosphatase 116 IU/L (35-105); Anion Gap 16.4 (5-19); Aspartate Amino Transferase 47 U/L (0-32); Blood Urea Nitrogen 10 mg/dL (8-23); Calcium 8.9 mg/dL (8.5-10.5); Carbon Dioxide 25 mmol/L (22-29); Chloride 93 mmol/L (98-107); Creatinine Clr Calc Pharmacy 135.1185; Glomerular Filtration Rate 161.7 mL/min (90-130); Glucose 96 mg/dL (65-115); Lactate Dehydrogenase 374 U/L (135-214); Osmolality Calculated 269 mOsm/kg (285-295); Potassium 4.4 mmol/L (3.5-5.1); Sodium 130 mmol/L (136-145); Total Bilirubin 0.3 mg/dL (0.15-1.2); Total Protein 6.6 g/dL (6.6-8.7)
[2020-12-22 17:29] LABS: Lactate (Lactic Acid level) 0.9 mmol/L (0.5-2.2); Slide Review Slide Review Perform
[2020-12-22 17:35] LABS: Ferritin 1003 ng/mL (15-150)
[2020-12-22 17:37] LABS: Erythrocyte Sedimentation Rate 59 mm/hr (0-15)
--- NOTE | 2020-12-22 18:38 | ED_ITS ---
HPI - COVID General: Chief Complaint: Shortness of Breath/Dyspnea Stated Complaint: COVID +, low o2, Time Seen by Provider: 12/22/20 16:19 Source: patient, RN notes reviewed and old records reviewed Mode of arrival: ambulatory Limitations: no limitations Triage information: Has fever, cough or shortness of breath . Exposure to COVID + person last 14 days History of Present Illness: HPI Narrative: Patient is a 60-year-old female who was seen in this emergency department yesterday for similar symptoms. She was diagnosed with COVID-19 yesterday. Symptoms started 7 days ago. Yesterday her oxygen saturations were normal and she was discharged home with a home pulse oximeter and was instructed to return if she becomes hypoxic. She states that today her oxygen saturation was in the mid 80s and so return to the emergency department as instructed. She complains of worsening shortness of breath, body aches, fever. complaint: known COVID positive Prior covid testing: yes, results known Prior testing date: 12/21/20 COVID 19 common symptoms: positive fever(s), chills, cough, dyspnea, fatigue and body aches COVID 19 other sytmptoms: positive requiring oxygen and lethargy; negative chest pain, pleuritic pain, respiratory distress, cyanosis or confusion Onset (ago): day(s) (7) Treatment prior to arrival: acetaminophen and ibuprofen COVID Results: SARS-CoV-2 Antigen (Rapid) Positive (Negative) H 12/21/20 11:49 12/21/20 SARS-CoV-2 RNA (RT-PCR) Pending 12/21/20 11:49 12/21/20 Review of Systems General: Reports: 10 or more systems reviewed and unremarkable except in HPI and below Const: Reports: fever(s), chills, body aches and fatigue Card: Denies: chest pain Resp: Reports: dyspnea Neuro: Denies: confusion PFSH ED PFSH: Medical History (Reviewed 12/22/20 @ 23:18 by Dianne Orellana MD, [facility] [place]) Depression Surgical History (Reviewed 12/22/20 @ 23:18 by Dianne Orellana MD, [facility] [place]) Hx of inguinal hernia surgery Previous section Social History (Reviewed 12/22/20 @ 23:18 by Dianne Orellana MD, [facility] [place]) Smoking and tobacco status: never smoked Physical Exam Const: COMMON NORMALS: no acute distress, average body habitus, patient oriented x3, no limitations, healthy appearing, alert and well nourished HENMT: COMMON NORMALS: normocephalic, atraumatic and moist oral mucous membranes HEAD & SCALP: normocephalic and atraumatic Neck/C-Spine: COMMON NORMALS: no meningeal signs and no JVD Resp: COMMON NORMALS: normal respiratory effort, No retractions, No use of accessory muscles, clear to auscultation bilaterally and percussion normal AUSCULTATION: clear to auscultation bilaterally PERCUSSION: percussion normal Cardio: COMMON NORMALS: no JVD, regular rate, regular rhythm, S1 normal heart sound present, S2 normal heart sound present, No gallops present (Cardio), No clicks present (Cardio), No murmurs present (Cardio), No rub (Cardio) and Perip heral pulses 2+ throughout RATE: regular rate RHYTHM: regular rhythm HEART SOUNDS: S1 normal heart sound present and S2 normal heart sound present PERIPHERAL PULSES: Peripheral pulses 2+ throughout GI: COMMON NORMALS: Normal to inspection, nondistended, normoactive bowel sounds present, Soft to palpation, non-tender, No hepatosplenomegaly present, no masses and no bruits PALPATION: Yes Soft to palpation and Yes No hepatosplenomegaly present Extremity: COMMON NORMALS: normal to inspection, full ROM, capillary refill normal, no calf tenderness and no pedal edema Neuro: COMMON NORMALS: patient oriented x3 SENSORIUM/ORIENTATION: Yes alert MENINGEAL SIGNS: Yes no meningeal signs Skin: COMMON NORMALS: no rashes or lesions noted, no wounds, turgor normal, no jaundice, no petechiae and no mottling GENERAL SKIN EXAM: no rashes or lesions noted and turgor normal Course Vital Signs: Vital signs: Vital Signs Temperature 101.9 F H 12/22/20 15:24 Pulse Rate 85 12/22/20 17:03 Respiratory Rate 24 H 12/22/20 20:20 Blood Pressure 116/68 12/22/20 20:20 Pulse Oximetry 92 12/22/20 20:20 MDM - COVID MDM Narrative: Medical decision making narrative: 60-year-old female patient with Covid pneumonia. She was seen in the department yesterday and discharged home on conservative measures. Today she returns because she is hypoxic. Oxygen saturations were apparently in the mid 80s at home. She is requiring 2 L of oxygen to maintain her oxygen saturations above 90%. I discussed treatment options with her including hospital admission but the patient declined hospital admission and wanted to be discharged home. She only wanted to be discharged home on home oxygen. As part of her work-up I ordered an ABG but the patient refused the ABG. She is discharged home with a prescription for dexamethasone and home oxygen has been set up for her. Medical Records: Attestation: I reviewed the patient's medical records. Lab Data: Attestation: I reviewed the patient's lab results. Labs: Lab Results 12/22/20 12/22/20 12/22/20 Range/Units 16:57 16:57 16:57 WBC 5.0 (4.0-10.0) 10^3/ uL RBC 4.06 L (4.1-5.3) 10^6/u L Hgb 12.9 (11.5-15.3) g/dL Hct 37.2 (37.0-47.0) % MCV 91.6 (81-99) fL MCH 31.8 (28.0-34.0) pg MCHC 34.7 (30.0-36.0) g/dL RDW 11.9 L (12.1-15.1) % Plt Count 223 (130-400) 10^3/c mm MPV 9.7 (7.4-10.4) fL Neut % (Auto) 76.9 % Lymph % (Auto) 17.3 % [place] % (Auto) 5.2 % Eos % (Auto) 0.0 % Baso % (Auto) 0.2 % Neut # (Auto) 3.86 (1.8-7.7) 10^3/u L Lymph # (Auto) 0.9 (0.8-4.8) 10^3/u L [place] # (Auto) 0.3 (0.2-0.9) 10^3/u L Eos # (Auto) 0.0 (0.0-0.8) 10^3/u L Baso # (Auto) 0.0 (0.0-0.1) 10^3/u L Nucleated RBC % (a uto) 0 % Nucleated RBCs # 0.0 /100WBC ESR 59 H (0-15) mm/hr D-Dimer (0-0.59) ug/mIFE U Sodium 130 L (136-145) mmol/L Potassium 4.4 (3.5-5.1) mmol/L Chloride 93 L (98-107) mmol/L Carbon Dioxide 25 (22-29) mmol/L Anion Gap 16.4 (5-19) BUN 10 (8-23) mg/dL Creatinine 0.4 L (0.5-0.9) mg/dL GFR Calculation 161.7 H (90-130) mL/min Glucose 96 (65-115) mg/dL Calculated Osmolal ity 269 L (285-295) mOsm/k g Lactate (0.5-2.2) mmol/L Calcium 8.9 (8.5-10.5) mg/dL Ferritin 1003 H (15-150) ng/mL Total Bilirubin 0.3 (0.15-1.2) mg/dL AST 47 H (0-32) U/L ALT 30 (0-33) U/L Alkaline Phosphata se 116 H (35-105) IU/L Lactate Dehydrogen ase 374 H (135-214) U/L C-Reactive Protein 55.0 H (0.0-4.9) mg/L Total Protein 6.6 (6.6-8.7) g/dL Albumin 3.6 (3.5-5.2) g/dL Globulin 3.0 (1.3-4.6) g/dL 12/22/20 12/22/20 Range/Units 16:57 16:57 WBC (4.0-10.0) 10^3/ uL RBC (4.1-5.3) 10^6/u L Hgb (11.5-15.3) g/dL Hct (37.0-47.0) % MCV (81-99) fL MCH (28.0-34.0) pg MCHC (30.0-36.0) g/dL RDW (12.1-15.1) % Plt Count (130-400) 10^3/c mm MPV (7.4-10.4) fL Neut % (Auto) % Lymph % (Auto) % [place] % (Auto) % Eos % (Auto) % Baso % (Auto) % Neut # (Auto) (1.8-7.7) 10^3/u L Lymph # (Auto) (0.8-4.8) 10^3/u L [place] # (Auto) (0.2-0.9) 10^3/u L Eos # (Auto) (0.0-0.8) 10^3/u L Baso # (Auto) (0.0-0.1) 10^3/u L Nucleated RBC % (a uto) % Nucleated RBCs # /100WBC ESR (0-15) mm/hr D-Dimer 1.04 H (0-0.59) ug/mIFE U Sodium (136-145) mmol/L Potassium (3.5-5.1) mmol/L Chloride (98-107) mmol/L Carbon Dioxide (22-29) mmol/L Anion Gap (5-19) BUN (8-23) mg/dL Creatinine (0.5-0.9) mg/dL GFR Calculation (90-130) mL/min Glucose (65-115) mg/dL Calculated Osmolal ity (285-295) mOsm/k g Lactate 0.9 (0.5-2.2) mmol/L Calcium (8.5-10.5) mg/dL Ferritin (15-150) ng/mL Total Bilirubin (0.15-1.2) mg/dL AST (0-32) U/L ALT (0-33) U/L Alkaline Phosphata se (35-105) IU/L Lactate Dehydrogen ase (135-214) U/L C-Reactive Protein (0.0-4.9) mg/L Total Protein (6.6-8.7) g/dL Albumin (3.5-5.2) g/dL Globulin (1.3-4.6) g/dL Imaging Data: CXR: Attestation: I personally reviewed and interpreted this imaging study as follows: Radiologist's impression: [address] [id number] ReportSigned Patient: Marry Dawkins #: [id number]: 9Acc#:[id number]/Sex: 60 / FADM Date: 12/22/20Loc: ERRoom/Bed:Attending Dr: Ordering Provider/Ordering MD: Sara Melendez NP Date of Service: 12/22/20 Procedure(s): XR chest 1V portable [id number] Accession Number(s): [id number] Report Number: [id number] PROCEDURE INFORMATION: Exam: XR Chest Exam date and time: 12/22/2020 4:21 PM Age: 60 years old Clinical indication: Cough and shortness of breath; Patient HX: Cough, SOB, + covid TECHNIQUE: Imaging protocol: XR of the chest. Views: 1 view. COMPARISON: CR (CHEST, ) 12/21/2020 11:23 AM FINDINGS: Lungs: Scattered patchy poorly defined ground-glass foci in the peripheral lungs bilaterally are increased from comparison imaging. There is background emphysema. Pleural spaces: Unremarkable. No pleural effusion. No pneumothorax. Heart/Mediastinum: Unremarkable. No cardiomegaly. Bones/joints: Unremarkable. Right proximal humerus surgical anchor. XR/XR chest 1V portable [id number] IMPRESSION: Worsening patchy multifocal airspace disease in the lungs consistent with atypical pneumonia. Dictated By:Mary Razo By:Mary Razo Date/Time:12/22/20 1905DD/ 1658 EKG Data: EKG 1: Attestation: I personally reviewed and interpreted this EKG as follows: EKG interpretation date: 12/22/20 EKG interpretation time: 18:14 Prior EKG tracings: available for review Interpretation: Sinus rhythm. Heart rate [address] changes. No significant change from yesterday. COVID Results: SARS-CoV-2 Antigen (Rapid) Positive (Negative) H 12/21/20 11:49 12/21/20 SARS-CoV-2 RNA (RT-PCR) Pending 12/21/20 11:49 12/21/20 Monoclonal Antibody Treatments Inclusion/Exclusion Criteria weight >/= 40 kg and + direct Sars-Cov-2 test less than 7-10 days ago age not >/= 65, BMI not >/= 35, does not have diabetes, does not have CKD, not receiving immunosuppressive therapy, does not have immunosuppressive disease, not >/= 55 with hypertension, not >/= 55 with diabetes, not >/= 55 with COPD/lung disease, not 12-17y with BMI >/= 85th percentile, not 12-17y with heart disease, not 12-17y with sickle cell disease, not 12-17y with neurodevelopemental d/o, not 12-17y with asthma/RAD/lung disease and not 12-17y w/ biomedical field service engineer dependence needs oxygen (DO NOT GIVE) Plan for treatment Does not meet criteria (DO NOT GIVE) Discharge Plan Discharge Patient Disposition: Home Clinical Impression: Pneumonia due to 2019 novel coronavirus, Hypoxia Condition: Stable Prescriptions: New dexamethasone 6 mg tablet 6 mg PO DAILY Qty: 5 RF: 0 Continued venlafaxine 150 mg capsule,extended release 24hr 150 mg PO DAILY@07 RF: 0 tramadol 50 mg tablet 50 mg PO BID PRN (Reason: Pain) RF: 0 acetaminophen [Tylenol Extra Strength] 500 mg Tablet 500 mg PO PRN PRN (Reason: pain/fever) RF: 0 ibuprofen [Advil] 200 mg Tablet 400 mg PO PRN RF: 0 PNV cmb#95-ferrous fumarate-FA [ Multivitamins] 28 mg iron- 800 mcg Tablet 1 tab PO DAILY RF: 0 [place] [employer] See Rx Instructions .ROUTE .COMPLEX RF: 0 zinc 1 cap PO DAILY RF: 0 albuterol sulfate 90 mcg/actuation HFA aerosol inhaler 4 inh inhalation Q4H PRN (Reason: shortness of breath or wheezing) Qty: 8.5 RF: 0 Discharge Orders: Discharge ED (Routine); Ordered 12/22/20 Ordered By: Dianne Orellana Other Ambulatory Orders: DME: Oxygen (Order) Location: None Selected Ordered By: Dianne Orellana Referrals: Curtis Martinez MD [Primary Care Provider] - 1-3 days Discharge Diet: Usual diet Discharge Activity: Increase activity as tolerated Patient Instructions: Viral Pneumonia (ED) Activity Restrictions/Additional Instructions: Return for any new or worsening symptoms. Follow-up with your primary care provider within 3 days. Use the oxygen as needed. Take the steroids as prescribed. Follow-up with your primary care provider within 3 days via telemedicine. Coding Level of Care Code ED Guest Relations Receptionist for Flavio Calderon
[2020-12-22 18:49] VITALS: O2SAT 87
[2020-12-22 19:07] VITALS: BP 116/68; RESP 24; O2SAT 92
[2020-12-22 20:20] VITALS: BP 116/68; RESP 24; O2SAT 92
== END 2020-12-22 20:10 | disposition home or self-care (01) ==
PROVIDERS: Registered Nurse; Emergency Provider Family Medicine; PCP Family Medicine
DX: U07.1 COVID-19 (principal); J12.82 Pneumonia due to coronavirus disease 2019; R09.02 Hypoxemia
CPT/HCPCS: 71045; 80053; 82728; 83605; 83615; 85025; 85378; 85651; 86140; 99283

== ENCOUNTER 2023-08-26 13:57 | Outpatient (CLI) | payer MEDICARE, SELFPAY ==
--- NOTE | 2023-08-26 14:03 | XR_ITS ---
WS: [id number] SCREENING DEXA SCAN Infusion Resource CLINICAL INFORMATION: POSTMENOPAUSAL COMPARISON: None. FINDINGS: The L1-L4 bone mineral density measures 0.807 g/cm2. This corresponds to a T score score of -3.1 and Z score of -1.4. Left femoral neck bone mineral density measures 0.758 g/cm2. This corresponds to a T score of -2.0 an d Z score of -0.7. Right femoral neck bone mineral density measures 0.689 g/cm2. This corresponds to a T score -2.5of an d Z score of -1.3. Mean femoral neck bone mineral density measures 0.723 g/cm2. This corresponds to a T score of -2.3 an d Z score of -1.0. IMPRESSION: Osteoporosis lumbar spine. Osteopenia femoral necks at the upper end of the range approaching osteopo rosis. Patient's FRAX calculated 10 year probability for major osteoporotic fracture is 19.2% and osteoporot ic hip fracture is 5.7%.
--- NOTE | 2023-08-26 14:03 | MM_ITS ---
WS: [id number] BILATERAL 3D TOMOSYNTHESIS DIGITAL SCREENING MAMMOGRAPHY WITH CAD CLINICAL INFORMATION: SCREENING HISTORY: Screening mammogram. No current complaints. COMPARISON: 2010 TECHNIQUE: Bilateral CC and MLO views. FINDINGS: The breasts are composed of heterogeneous fibroglandular density tissue, which can limit the detectio n of small underlying mass lesions. No suspicious mass, asymmetry, calcifications, or architectural d istortion. No evidence of malignancy. IMPRESSION: MM/[place] [id number] BI-RADS: 1-Negative FOLLOW UP: 1 Year Follow-up Recommend return to annual screening mammography.
== END 2023-08-26 13:58 | disposition home or self-care (01) ==
LOC: RAD 13:57
PROVIDERS: PCP Family Medicine; Visit Provider Physician Assistant
DX: Z12.31 Encounter for screening mammogram for malignant neoplasm of breast (principal); R92.323 Mammographic fibroglandular density, bilateral breasts; Z13.820 Encounter for screening for osteoporosis; Z78.0 Asymptomatic menopausal state; M81.0 Age-related osteoporosis without current pathological fracture
CPT/HCPCS: 77063; 77067; 77080

== ENCOUNTER → 2024-07-24 07:48 | Outpatient (BNVA) | payer MEDICARE, SELFPAY | PROVIDERS: PCP Family Medicine; Visit Provider Nurse Practitioner Family | DX: L65.0 Telogen effluvium (principal); T45.1X5A Adverse effect of antineoplastic and immunosuppressive drugs, initial encounter; L30.9 Dermatitis, unspecified; L81.4 Other melanin hyperpigmentation; L57.0 Actinic keratosis | CPT/HCPCS: 17000; 99214 ==

== ENCOUNTER 2024-09-20 10:24 | Outpatient (CLI) | payer MEDICARE, SELFPAY ==
--- NOTE | 2024-09-20 10:26 | MM_ITS ---
WS: [id number] BILATERAL SCREENING DIGITAL TOMOSYNTHESIS MAMMOGRAM WITH CAD HISTORY: SCREENING COMPARISON: 08/26/2023, 05/25/2011 Bilateral CC and MLO views with tomosynthesis and synthetic mammography submitted. Computer aided detection analyzed. Breast composition: There are scattered areas of fibroglandular density. No suspicious masses, microcalcifications or architectural distortion. MM/MM scr BI tomosynthesis [id number] IMPRESSION: BI-RADS: 2 - Benign. FOLLOW UP: 1 Year Follow-up
== END 2024-09-20 10:25 | disposition home or self-care (01) ==
PROVIDERS: PCP Family Medicine; Visit Provider Family Medicine
DX: Z12.31 Encounter for screening mammogram for malignant neoplasm of breast (principal); R92.323 Mammographic fibroglandular density, bilateral breasts
CPT/HCPCS: 77063; 77067